=== PATIENT | male | born 1990 | race Caucasian/White ===

== ENCOUNTER 2019-10-05 10:01 | Outpatient (CLI) | payer OTHER, SELFPAY ==
--- NOTE | ~2019-10-05 | XR_ITS ---
EXAMINATION: XR chest 2V DATE: 10/05/2019 10:22 INDICATION: Acute axillary lymphadenitis. TECHNIQUE: Frontal and lateral views of the chest were obtained. COMPARISON: None. FINDINGS: The chest demonstrates clear lungs without pneumonia, pleural effusion, or pneumothorax. Th e heart size is normal. IMPRESSION: 1. No acute cardiopulmonary disease. Reviewed, dictated and finalized at location A.
== END 2019-10-05 10:02 | disposition home or self-care (01) ==
LOC: ANHIMG 10:08
PROVIDERS: PCP Internal Medicine; Visit Provider Nurse Practitioner
DX: L04.2 Acute lymphadenitis of upper limb (principal)
CPT/HCPCS: 71046

== ENCOUNTER 2023-03-09 09:15 | Emergency (ER) | payer OTHER, SELFPAY ==
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
[2023-03-09 09:46] VITALS: BP 130/90; PULSE 81; RESP 16; TEMP 36.6; O2SAT 99
== END 2023-03-09 10:10 | disposition home or self-care (01) ==
PROVIDERS: Emergency Provider Nurse Practitioner Family
DX: S80.12XA Contusion of left lower leg, initial encounter (principal); S80.812A Abrasion, left lower leg, initial encounter; W50.1XXA Accidental kick by another person, initial encounter
CPT/HCPCS: 99212; G0463